=== PATIENT | female | born 1965 | race Caucasian/White ===

== ENCOUNTER 2018-12-12 09:03 | Emergency (ER) | payer BC ==
--- OUTSIDE RECORDS SUMMARY | 2018-12-12 09:05 | XMS REPORT ---
:1965 [facility] Address [address] [place] [address] [address] [place] [address] Care Team Providers Name Role Phone Unavailable Unavailable Unavailable Payers Payer Name Policy Type Policy Number Effective Date Expiration Date Problems This patient has no known problems. Allergies, Adverse Reactions, Alerts Allergy Allergy Status Severity Reaction(s) Onset Inactive Treating Comments Name Type Date Date Clinician marla CRISOSTOMO Active MO 2011-10 00:00:0 0 Medications This patient has no known medications.
[2018-12-12] MEDS ORDERED: FENTANYL CITR 100 MCG/2 ML ONE (10:59)
[2018-12-12] MEDS ORDERED: LIDOCAINE 5% PATCH TD ONE (11:00)
--- NOTE | 2018-12-12 11:01 | ER ---
Nurse's Notes [facility] Name: Janelle Tran Age: 52 yrs Sex: Female : 1965 Arrival Date: 12/12/2018 Time: 09:05 Bed 18 Private MD: Duarte Acevedo Diagnosis: Lumbago with sciatica, left side Presentation: 12/12 09:13 Presenting complaint: Patient states: "I've been having back pain and being treated aa5 with cortisone shots and I have an MRI scheduled for today at 2pm but the pain is so bad today and I could barely get out of bed". Transition of care: patient was not received from another setting of care. Onset of symptoms was December 12, 2018. Risk Assessment: Do you want to hurt yourself or someone else? Patient reports no desire to harm self or others. Initial Sepsis Screen: Does the patient meet any 2 criteria? No. Patient's initial sepsis screen is negative. Does the patient have a suspected source of infection? No. Patient's initial sepsis screen is negative. Care prior to arrival: None. 09:13 Method Of Arrival: Wheelchair aa5 09:13 Acuity: BERNICE 3 aa5 Triage Assessment: 09:55 General: Appears in no apparent distress. tw2 09:55 General: Behavior is calm, cooperative. Musculoskeletal: Circulation, motion, and tw2 sensation intact. Range of motion: intact in all extremities. 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 - Social history:: Smoking status: Patient/guardian denies using tobacco. - Ebola Screening: : No symptoms or risks identified at this time. Screenin:02 Abuse screen: Denies threats or abuse. Nutritional screening: No deficits noted. tw2 Tuberculosis screening: No symptoms or risk factors identified. Fall Risk None identified. Assessment: 09:55 General: Appears in no apparent distress. well groomed. Pain: Complains of pain in back tw2 and low back area. Neuro: Level of Consciousness is awake, alert, obeys commands, Oriented to person, place, time, situation. Cardiovascular: Patient's skin is warm and dry. Respiratory: Airway is patent Respiratory effort is even, unlabored, Respiratory pattern is regular, symmetrical. GI: No signs and/or symptoms were reported involving the gastrointestinal system. : No signs and/or symptoms were reported regarding the genitourinary system. EENT: No signs and/or symptoms were reported regarding the EENT system. Derm: No signs and/or symptoms reported regarding the dermatologic system. Musculoskeletal: Circulation, motion, and sensation intact. Range of motion: intact in all extremities, Reports pain in low back area. 10:37 Reassessment: provider at bedside at this time. tw2 11:17 Reassessment: Patient appears in no apparent distress at this time. Patient and/or tw2 family updated on plan of care and expected duration. Pain level reassessed. Patient is alert, oriented x 3, equal unlabored respirations, skin warm/dry/pink. Patient states feeling better. Vital Signs: 09:15 BP 141 / 81; Pulse 79; Resp 16 S; Temp 98.2(TE); Pulse Ox 99% on R/A; Weight 81.65 kg aa5 (R); Height 5 ft. 2 in. (157.48 cm) (R); Pain 10/10; 11:16 BP 135 / 64; Pulse 73; Resp 17; Pulse Ox 97% ; Pain 9/10; tw2 09:15 Body Mass Index 32.92 (81.65 kg, 157.48 cm) aa5 ED Course: 09:05 Patient arrived in ED. rg4 09:08 Duarte Acevedo MD is Private Physician. rg4 09:14 Triage completed. aa5 09:14 Arm band placed on. aa5 09:53 Bed in low position. Call light in reach. Pulse ox on. NIBP on. tw2 10:02 Lindsay Bell RN is Primary Nurse. tw2 10:32 Dheeraj Benson NP is PHCP. pm1 10:32 Bruce Goode MD is Attending Physician. pm1 11:17 No provider procedures requiring assistance completed. Patient did not have IV access tw2 during this emergency room visit. Administered Medications: 10:50 Drug: fentaNYL (PF) 25 mcg Route: IM; Site: left gluteus; tw2 11:16 Follow up: Response: No adverse reaction; Pain is decreased tw2 10:50 Drug: Zofran 4 mg Route: PO; tw2 11:16 Follow up: Response: No adverse reaction tw2 10:52 Drug: TORadol 30 mg Route: IM; Site: left gluteus; tw2 11:17 Follow up: Response: No adverse reaction; Pain is decreased tw2 11:04 Drug: lidocaine 5% patch 1 patches {Note: left low back.} Route: Topical; Site: tw2 affected area; 11:17 Follow up: Response: No adverse reaction tw2 Outcome: 10:57 Discharge ordered by . pm1 11:17 Discharged to home via wheelchair. tw2 11:17 Condition: stable 11:17 Discharge instructions given to patient, significant other, Instructed on discharge instructions, follow up and referral plans. no drinking with medication, no driving heavy equipment, medication usage, Demonstrated understanding of instructions, follow-up care, medications, Prescriptions given X 3. 11:17 Patient left the ED. tw2 Signatures: Fanta Dickey RN RN aa5 Dheeraj Benson NP ENTRY OPERATOR pm1 Lindsay Bell RN RN tw2 Marlyn Ramirez rg4
--- NOTE | 2018-12-12 11:01 | EDPHYS ---
Physician Documentation [facility] Name: Janelle Tran Age: 52 yrs Sex: Female : 1965 Arrival Date: 12/12/2018 Time: 09:05 Bed 18 Private MD: Duarte Acevedo ED Physician Bruce Goode HPI: 12/12 10:42 This 52 yrs old Female presents to ER via Wheelchair with complaints of Back pm1 Pain. 10:42 The patient presents with pain that is acute. The symptoms are located in the low back. pm1 Onset: The symptoms/episode began/occurred October 2018. The pain radiates to the left leg. Associated signs and symptoms: Pertinent negatives: abdominal pain, chest pain, dysuria, fever, numbness, tingling, weakness. The problem was sustained Moving/turning while sitting on chair at work. Modifying factors: The patient symptoms are alleviated by remaining still, rest, the patient symptoms are aggravated by Sitting. Severity of symptoms: in the emergency department the symptoms are actually worse. The patient has been recently seen by a physician: the patient's primary care provider, with similar presenting complaints, had X-ray performed by PCP along with steroid shots. Has MRI scheduled for today. 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 - Social history:: Smoking status: Patient/guardian denies using tobacco. - Ebola Screening: : No symptoms or risks identified at this time. ROS: 10:42 Constitutional: Negative for fever, chills, and weight loss, Neck: Negative for injury, pm1 pain, and swelling, Cardiovascular: Negative for chest pain, palpitations, and edema, Respiratory: Negative for shortness of breath, cough, wheezing, and pleuritic chest pain, Abdomen/GI: Negative for abdominal pain, nausea, vomiting, diarrhea, and constipation. 10:42 MS/Extremity: Negative for injury and deformity, Skin: Negative for injury, rash, and discoloration, Neuro: Negative for headache, weakness, numbness, tingling, and seizure. 10:42 Back: Positive for of the low back area, radiation to left lower leg. Exam: 10:42 Constitutional: This is a well developed, well nourished patient who is awake, alert, pm1 and in no acute distress. Head/Face: Normocephalic, atraumatic. Chest/axilla: Normal chest wall appearance and motion. Nontender with no deformity. No lesions are appreciated. Cardiovascular: Regular rate and rhythm with a normal S1 and S2. No gallops, murmurs, or rubs. No pulse deficits. Respiratory: Lungs have equal breath sounds bilaterally, clear to auscultation and percussion. No rales, rhonchi or wheezes noted. No increased work of breathing, no retractions or nasal flaring. Abdomen/GI: Soft, non-tender, with normal bowel sounds. No distension or tympany. No guarding or rebound. No evidence of tenderness throughout. Back: No spinal tenderness. No costovertebral tenderness. Full range of motion. Skin: Warm, dry with normal turgor. Normal color with no rashes, no lesions, and no evidence of cellulitis. MS/ Extremity: Pulses equal, no cyanosis. Neurovascular intact. Full, normal range of motion. 10:42 Neuro: Orientation: is normal, Motor: moves all fours, strength is 5/5 in all extremities, Patient able to dorsiflex and plantar flex bilateral great toes 5/5 strength . Vital Signs: 09:15 BP 141 / 81; Pulse 79; Resp 16 S; Temp 98.2(TE); Pulse Ox 99% on R/A; Weight 81.65 kg aa5 (R); Height 5 ft. 2 in. (157.48 cm) (R); Pain 10/10; 11:16 BP 135 / 64; Pulse 73; Resp 17; Pulse Ox 97% ; Pain 9/10; tw2 09:15 Body Mass Index 32.92 (81.65 kg, 157.48 cm) aa5 MDM: 10:32 Patient medically screened. pm1 10:42 Data reviewed: vital signs. Data interpreted: Pulse oximetry: on room air is 99 %. pm1 Interpretation: normal. 10:55 Counseling: I had a detailed discussion with the patient and/or guardian regarding: the pm1 historical points, exam findings, and any diagnostic results supporting the discharge/admit diagnosis, the need for outpatient follow up, for definitive care, a neurosurgeon, MRI, to return to the emergency department if symptoms worsen or persist or if there are any questions or concerns that arise at home. Administered Medications: 10:50 Drug: fentaNYL (PF) 25 mcg Route: IM; Site: left gluteus; tw2 11:16 Follow up: Response: No adverse reaction; Pain is decreased tw2 10:50 Drug: Zofran 4 mg Route: PO; tw2 11:16 Follow up: Response: No adverse reaction tw2 10:52 Drug: TORadol 30 mg Route: IM; Site: left gluteus; tw2 11:17 Follow up: Response: No adverse reaction; Pain is decreased tw2 11:04 Drug: lidocaine 5% patch 1 patches {Note: left low back.} Route: Topical; Site: tw2 affected area; 11:17 Follow up: Response: No adverse reaction tw2 Disposition: 12/12/18 10:57 Discharged to Home. Impression: Lumbago with sciatica, left side. - Condition is Stable. - Discharge Instructions: Back Pain, Adult, Sciatica. - Prescriptions for Cyclobenzaprine 10 mg Oral Tablet - take 1 tablet by ORAL route every 8 hours As needed; 30 tablet. Medrol (Ulisses) 4 mg Oral Tablets, Dose Pack - take 1 tablet by ORAL route as directed - follow package instructions; 1 packet. Tramadol 50 mg Oral Tablet - take 1 tablet by ORAL route every 8 hours as needed; 12 tablet. - Work release form, Medication Reconciliation Form, Thank You Letter, Antibiotic Education, Prescription Opioid Use form. - Follow up: Emergency Department; When: As needed; Reason: Worsening of condition. Follow up: Private Physician; When: 2 - 3 days; Reason: Recheck today's complaints, Continuance of care, Re-evaluation by your physician. - Problem is new. - Symptoms have improved. Addendum: 12/13/2018 18:39 Co-signature as Attending Physician, Bruce Goode MD. g s Signatures: Fanta Dickey RN RN aa5 Dheeraj Benson CONTACT FINGER ASSEMBLER CONTACT FINGER ASSEMBLER pm1 Lindsay Bell RN RN tw2 Bruce Goode MD MD gs Corrections: (The following items were deleted from the chart) 12/12 11:17 10:57 12/12/2018 10:57 Discharged to Home. Impression: Lumbago with sciatica, left tw2 side. Condition is Stable. Forms are Medication Reconciliation Form, Thank You Letter, Antibiotic Education, Prescription Opioid Use. Follow up: Emergency Department; When: As needed; Reason: Worsening of condition. Follow up: Private Physician; When: 2 - 3 days; Reason: Recheck today's complaints, Continuance of care, Re-evaluation by your physician. Problem is new. Symptoms have improved. pm1
[2018-12-12] MEDS ORDERED: ONDANSETRON 4 MG (ODT) TAB ONE (11:02)
[2018-12-12] MEDS ORDERED: KETOROLAC 30 MG/ML INJ ONE (11:02)
== END 2018-12-12 11:17 | disposition home or self-care (01) ==
LOC: ER 09:03
DX: M54.42 Lumbago with sciatica, left side (principal); Z88.5 Allergy status to narcotic agent
CPT/HCPCS: 96372; 99283; J3010

== ENCOUNTER 2019-08-04 10:26 | Emergency (ER) | payer BC ==
--- OUTSIDE RECORDS SUMMARY | 2019-08-04 10:28 | XMS REPORT ---
:1965 [facility] Address [address] [place] [address] [address] [place] [address] Care Team Providers Name Role Phone Unavailable [...]
--- NOTE | 2019-08-04 11:53 | ER ---
Nurse's Notes [facility] Name: Janelle Tran Age: 53 yrs Sex: Female : 1965 Arrival Date: 08/04/2019 Time: 10:29 Bed 30 Private MD: Diagnosis: Influenza due to identified novel influenza A virus;Acute upper respiratory infection, unspecified;Cough Presentation: 08/03 10:54 Chief complaint: Patient states: Cough, congestion, sore throat, chills and body aches ss x 2-3 days. Pt was concerned as her daughter's boyfriend's family member had recently returned from [place] >2 weeks ago and had spent time with her daughter two weeks ago. Coronavirus screen: The patient has NOT traveled to a country currently being monitored by the CDC within the last 14 days. Ebola Screen: Patient denies exposure to infectious person. Patient denies travel to an Ebola-affected area in the 21 days before illness onset. Initial Sepsis Screen: Does the patient meet any 2 criteria? No. Patient's initial sepsis screen is negative. Does the patient have a suspected source of infection? No. Patient's initial sepsis screen is negative. Risk Assessment: Do you want to hurt yourself or someone else? Patient reports no desire to harm self or others. Note Pt is concerned for her possible exposure to the COVID-19 virus. 10:54 Method Of Arrival: Ambulatory ss 10:54 Acuity: BERNICE 4 ss Historical: - Allergies: 11:00 Codeine; ss - Home Meds: 11:00 None [Active]; ss - PMHx: 11:00 None; ss - PSHx: 11:00 ; partial hysterectomy; breast surgery; tummy tuck; ss - Immunization history:: Adult Immunizations up to date. - Social history:: Smoking status: Patient denies any tobacco usage or history of. - Family history:: not pertinent. Screenin:02 Abuse screen: Denies threats or abuse. Denies injuries from another. Nutritional ss screening: No deficits noted. Tuberculosis screening: Never had TB. Fall Risk None identified. Assessment: 11:00 Reassessment: Spoke with [facility] who stated that patient was very low risk for COVID-19 ss and to continue with usual triage and to test for strep and flu. 11:00 General: Appears uncomfortable, Behavior is calm, cooperative. General: Reports chills ss for 1-2 days, fever for 1-2 days, feeling ill for 1-2 days, fatigue for 1-2 days. Pain: Complains of pain in headache Pain currently is 4 out of 10 on a pain scale. Quality of pain is described as aching. Neuro: Level of Consciousness is awake, alert, obeys commands, Oriented to person, place, time, situation. Cardiovascular: Capillary refill < 3 seconds in bilateral fingers. Respiratory: Airway is patent Respiratory effort is even, unlabored, Respiratory pattern is regular, symmetrical. Respiratory: Reports cough that is. GI: Patient currently denies diarrhea, nausea, vomiting. EENT: Oral mucosa is moist. Throat is clear. Derm: Skin is intact, is healthy with good turgor, Skin is dry, Skin is pink, warm \T\ dry. normal. Musculoskeletal: Circulation, motion, and sensation intact. Range of motion: intact in all extremities. Vital Signs: 10:54 BP 119 / 92; Pulse 103; Resp 16; Temp 99.4(O); Pulse Ox 96% on R/A; Weight 81.19 kg; ss Height 5 ft. 2 in. (157.48 cm); Pain 4/10; 10:54 Body Mass Index 32.74 (81.19 kg, 157.48 cm) ED Course: 10:29 Patient arrived in ED. bd 10:29 Brock Bruno MD is Attending Physician. [facility] 10:59 Triage completed. 11:00 Arm band placed on right wrist. 11:02 Patient has correct armband on for positive identification. Bed in low position. Call light in reach. 11:02 No provider procedures requiring assistance completed. 11:25 Ashley Jamison, RADHA is Primary Nurse. 12:01 Patient did not have IV access during this emergency room visit. Administered Medications: 11:41 CANCELLED (Duplicate Order): Tamiflu 75 mg PO once [facility] 12:00 Drug: Tamiflu 75 mg Route: PO; 12:01 Follow up: Response: Medication administered at discharge. Outcome: 11:52 Discharge ordered by . era 12:01 Discharged to home ambulatory. 12:01 Condition: good 12:01 Discharge instructions given to patient, family, Instructed on discharge instructions, follow up and referral plans. medication usage, Demonstrated understanding of instructions, follow-up care, medications, Prescriptions given X 3. 12:01 Patient left the ED. ss Signatures: Betzaida Carlos Corey, MD MD cha Smirch, Shelby, RADHA RN ss
--- NOTE | 2019-08-04 11:53 | EDPHYS ---
Physician Documentation [facility] Name: Janelle Tran Age: 53 yrs Sex: Female : 1965 Arrival Date: 08/04/2019 Time: 10:29 Bed 30 Private MD: Brock Bryant HPI: 08/03 11:47 This 53 yrs old Female presents to ER via Ambulatory with unknown complaint. era 11:47 fever, cough, maliase. The patient or guardian reports cough, described as mild, flu era symptoms, arthralgias, low-grade fever, myalgias. Severity of symptoms: At their worst the symptoms were mild, in the emergency department the symptoms are unchanged. Onset: The symptoms/episode began/occurred 2 day(s) ago. Modifying factors: The symptoms are alleviated by nothing, the symptoms are aggravated by exertion. The patient reports fever, that was measured at 101 degrees Fahrenheit. Associated signs and symptoms: Pertinent positives: fever, nausea, rhinorrhea, sore throat. Historical: - Allergies: 11:00 Codeine; ss - Home Meds: 11:00 None [Active]; ss - PMHx: 11:00 None; ss - PSHx: 11:00 ; partial hysterectomy; breast surgery; tummy tuck; ss - Immunization history:: Adult Immunizations up to date. - Social history:: Smoking status: Patient denies any tobacco usage or history of. - Family history:: not pertinent. ROS: 11:47 Constitutional: Negative for fever, chills, and weight loss, Eyes: Negative for injury, era pain, redness, and discharge, ENT: Negative for injury, pain, and discharge, Neck: Negative for injury, pain, and swelling, Cardiovascular: Negative for chest pain, palpitations, and edema, Abdomen/GI: Negative for abdominal pain, nausea, vomiting, diarrhea, and constipation, Back: Negative for injury and pain, : Negative for injury, bleeding, discharge, and swelling, MS/Extremity: Negative for injury and deformity, Skin: Negative for injury, rash, and discoloration, Neuro: Negative for headache, weakness, numbness, tingling, and seizure, Psych: Negative for depression, anxiety, suicide ideation, homicidal ideation, and hallucinations, Allergy/Immunology: Negative for hives, rash, and allergies, Endocrine: Negative for neck swelling, polydipsia, polyuria, polyphagia, and marked weight changes, Hematologic/Lymphatic: Negative for swollen nodes, abnormal bleeding, and unusual bruising. 11:47 Respiratory: Positive for cough, "sounds productive". Exam: 11:47 Head/Face: Normocephalic, atraumatic. Eyes: Pupils equal round and reactive to light, era extra-ocular motions intact. Lids and lashes normal. Conjunctiva and sclera are non-icteric and not injected. Cornea within normal limits. Periorbital areas with no swelling, redness, or edema. ENT: Nares patent. No nasal discharge, no septal abnormalities noted. Tympanic membranes are normal and external auditory canals are clear. Oropharynx with no redness, swelling, or masses, exudates, or evidence of obstruction, uvula midline. Mucous membranes moist. Neck: Trachea midline, no thyromegaly or masses palpated, and no cervical lymphadenopathy. Supple, full range of motion without nuchal rigidity, or vertebral point tenderness. No Meningismus. Chest/axilla: Normal chest wall appearance and motion. Nontender with no deformity. No lesions are appreciated. Respiratory: Lungs have equal breath sounds bilaterally, clear to auscultation and percussion. No rales, rhonchi or wheezes noted. No increased work of breathing, no retractions or nasal flaring. Abdomen/GI: Soft, non-tender, with normal bowel sounds. No distension or tympany. No guarding or rebound. No evidence of tenderness throughout. Back: No spinal tenderness. No costovertebral tenderness. Full range of motion. Skin: Warm, dry with normal turgor. Normal color with no rashes, no lesions, and no evidence of cellulitis. MS/ Extremity: Pulses equal, no cyanosis. Neurovascular intact. Full, normal range of motion. Neuro: Awake and alert, GCS 15, oriented to person, place, time, and situation. Cranial nerves II-XII grossly intact. Motor strength 5/5 in all extremities. Sensory grossly intact. Cerebellar exam normal. Normal gait. Psych: Awake, alert, with orientation to person, place and time. Behavior, mood, and affect are within normal limits. 11:47 Constitutional: The patient appears febrile. 11:47 Cardiovascular: Rate: tachycardic, Rhythm: regular, Pulses: Pulses are 4+ in bilateral radial, brachial, femoral, popliteal, posterior tibial and and dorsalis pedis arteries.. Heart sounds: normal, Edema: is not appreciated, JVD: is not appreciated. Vital Signs: 10:54 BP 119 / 92; Pulse 103; Resp 16; Temp 99.4(O); Pulse Ox 96% on R/A; Weight 81.19 kg; ss Height 5 ft. 2 in. (157.48 cm); Pain 4; 10:54 Body Mass Index 32.74 (81.19 kg, 157.48 cm) MDM: 10:29 Patient medically screened. [facility] 11:51 Data reviewed: vital signs, nurses notes, lab test result(s), Flu: positive. [facility] 08/03 10:48 Order name: Influenza Screen (a \\T\\ B); Complete Time: 11:40 era 08/03 11:04 Order name: Strep; Complete Time: 11:40 08/03 11:36 Order name: Throat Culture EDMS Administered Medications: 11:41 CANCELLED (Duplicate Order): Tamiflu 75 mg PO once [facility] 12:00 Drug: Tamiflu 75 mg Route: PO; 12:01 Follow up: Response: Medication administered at discharge. Disposition: 08/04/19 11:52 Discharged to Home. Impression: Influenza due to identified novel influenza A virus, Acute upper respiratory infection, unspecified, Cough. - Condition is Stable. - Discharge Instructions: Influenza, Adult, Upper Respiratory Infection, Adult, Upper Respiratory Infection, Adult, [id number]. - Prescriptions for Bromfed DM 2- 30-10 mg/5 mL Oral syrup - take 10 milliliter by ORAL route every 6 hours; 150 milliliter. Zithromax Z- Ulisses 250 mg Oral Tablet - take 1 tablet by ORAL route as directed for 5 days Day 1 - take two (2) tablets one time. Day 2, 3, 4 , 5 take one (1) tablet once daily.; 6 tablet. Tamiflu 75 mg Oral Capsule - take 1 tablet by ORAL route every 12 hours for 5 days; 10 tablet. - Work release form, Medication Reconciliation Form, Thank You Letter, Antibiotic Education, Prescription Opioid Use form. - Follow up: Private Physician; When: 2 - 3 days; Reason: Recheck today's complaints, Continuance of care, Re-evaluation by your physician. - Problem is new. - Symptoms have improved. Signatures: Dispatcher [employer] EDBrock Meza MD MD cha Smirch, Shelby, RN RN ss Corrections: (The following items were deleted from the chart) 11:41 11:41 Tamiflu 75 mg PO once ordered. era girard 12:01 11:52 08/04/2019 11:52 Discharged to Home. Impression: Influenza due to identified ss novel influenza A virus; Acute upper respiratory infection, unspecified; Cough. Condition is Stable. Forms are Medication Reconciliation Form, Thank You Letter, Antibiotic Education, Prescription Opioid Use. Follow up: Private Physician; When: 2 - 3 days; Reason: Recheck today's complaints, Continuance of care, Re-evaluation by your physician. Problem is new. Symptoms have improved. era
[2019-08-04] MEDS ORDERED: OSELTAMIVIR 75 MG CAP ONE (11:54)
[2019-08-04 12:08] VITALS: BP 119/92; TEMP 99.4; O2SAT 96
== END 2019-08-04 12:01 | disposition home or self-care (01) ==
LOC: ER 10:26
DX: J09.X2 Influenza due to identified novel influenza A virus with other respiratory manifestations (principal); Z88.6 Allergy status to analgesic agent
CPT/HCPCS: 87070; 87081; 87804; 99283